=== PATIENT | female | born 1955 | race Caucasian/White ===

== ENCOUNTER 2016-12-02 06:54 | Outpatient (CLI) | payer BC ==
[~2016-12-02] VITALS: Ht 167.6 cm; Wt 99.1 kg
--- NOTE | ~2016-12-02 | HEMODYNAMI ---
PATIENT:BARBARA MOTT MEDICAL RECORD: [id number] : 53 LOCATION:[facility] ADMISSION DATE: 12/02/16 Generatedon:12/02/20169:57 Patient name: BARBARA MOTT Patient #: [id number] SSN: : Date of study: 12/02/2016 Page: Of Hemodynamic Procedure Report Patient Data Patient Demographics Procedure consent was obtained First Name: BARBARA Gender: Female Last Name: TIERA : 1955 [facility] Initial: JOSELYN Age: 60 year(s) Patient #: [id number] Race: Unknown Additional ID: [id number] Contact details Address: [address] [place] [address] ROAD State: [place] City: [place] Zip code: [address] Past Medical History Allergies Allergen Reaction Date Comments Reported Codeine 12/02/2016 Admission Admission Data Admission Date: 12/02/2016 Admission Time: 6:54 Height (in.): 66 BSA: 2.07 (m2) Height (cm.): 167.64 BMI: 35.19 (kg/m2) Weight (lbs.): 218 Weight (kg.): 98.88 Lab Results Lab Result Date: 12/02/2016 Lab Result Time: 0:00 Biochemistry Name Units Result Min Max BUN mg/dl 11 --(-*--)-- 7 18 Creatinine mg/dl 1.2 --(---*)-- 0.6 1.3 CBC Name Units Result Min Max Hemoglobin g/dl 13.3 -*(----)-- 13.5 17.5 Procedure Procedure Types Cath Procedure Diagnostic Procedure Right Heart RHC and LHC w/Coronaries Miscellaneous Procedures Moderate Sedation up to 45 minutes Procedure Description Procedure Date Procedure Date: 12/02/2016 Procedure Start Time: 9:16 Procedure End Time: 9:57 Procedure Staff Name Function Yoseph Akers MD Performing Physician Marcel Aquino RN Nurse Isela Healy RT Scrub Carlos A Reyes RT Scrub Reynaldo Lockwood RN Fisher Pound Net Or Trap Sumi Morrison RT Monitor Procedure Data Cath Procedure Fluoroscopy Diagnostic fluoroscopy Total fluoroscopy Time: 4.2 time: 4.2 min min Diagnostic fluoroscopy Total fluoroscopy dose: 448 dose: 448 mGy mGy Contrast Material Contrast Material Type Amount (ml) Isovue 300 44 Entry Location Entry Primary Successful Side Size Upsize Upsize Entry Closure Bass ccessful Closure Location (Fr) 1 (Fr) 2 (Fr) Remarks Device Remarks Femoral Right 6 Fr Manual vein Long Compression Femoral Right 5 Fr Exoseal artery Estimated blood loss: 5 ml Diagnostic catheters Device Type Used For End Catheter Placement FilesX 7Fr Right heart cath [place] Thermodilution vanessa Cordis 5Fr JL 4.0 Left Coronary Catheter (MP) Angiography Cordis 5Fr 3DRC Catheter Right Coronary (MP) Angiography Cordis 5Fr Pigtail LV Angiography Catheter (MP) Procedure Complications No complications Procedure Medications Medication Administration Route Dosage Oxygen NC 2 l/min Lidocaine 2% added to field 20 Heparin Flush Bag added to field 2 bags (1000units/500ml NS) 0.9% NaCl I.V. 100 ml/hr Zofran I.V. 2 mg Versed I.V. 1 mg Heparin Flush Bag added to field 1 bags (1000units/500ml NS) Versed I.V. 1 mg Fentanyl I.V. 50 mcg Hemodynamics Rest BSA: 2.07 (m2) HGB: 13.3 (g/dl) O2 Consumption: Estimated: 192.78 (ml/min) O2 Co nsumption indexed: Estimated:93.13 (ml/min/m) Heart Rate: 66 (bpm) Oxygen Saturations Time Location Sat. Hgb O2 pO2 PCO2 Be iCa Ph HCO 3- Hct NA K+ Use (%) (g/dl) Content (mmHg) (mmHg) (mmol/L) (mmol/L) (mmol/L) (%) (mmo l/L) (mmol/L) (ml/L) 9:25 PCW 89.3 13.3 9:25 FA 96.9 13.3 9:25 PA 72.4 13.3 9:35 ELLYN 72.7 13.3 Pressure Samples Time Site Value (mmHg) Purpose Heart Use Rate(bpm) 9:22 PCW 6/7(5) Snapshot 54 9:23 PA 20/12(15) Snapshot 56 9:32 RV 24/2,7 Snapshot 67 9:33 RA 10/11(8) Pullback 56 9:33 RV 25/3,10 Pullback 56 9:33 RA 7/6(6) Snapshot 54 9:45 LV 123/-8,14 EDP 54 Gradients Valve Time Site 1 Site 2 Mean SEP/DFP Peak To Heart Use (mmHg) (sec/min) Peak Rate (mmHg) (bpm) Pulmonic 9:32 PA RV 57 Tricuspid 9:33 RV RA 3 37 56 25/3,10 10/11(8) Thermodilution Cardiac Output Time Cardiac Output (l/min) Use 9:28 4.14 l/m 9:29 Invalid catheter data 9:30 4.17 l/m 9:31 4.35 l/m Calculations Shunts (%) CO SV CO CI Left To 5.82 (ml/beat) (l/min) (l/(min*m)) Right Narayan 65.56 4.35 2.1 Right To 5.82 133.79 Thermal 80.13 4.22 2 Left Flows (l/min) Content (ml/l) O2 Difference (ml/l) Qs 4.35 Qsi 2.1 Qe/Qp 1 O2 SA 175.27 SA-MV(AV) 44.31 O2 MV 130.96 PV-PA(VA) O2 PA 130.96 PV-MV(VV) Valve P-P Mean Valve Index Valve Source Name Gradient Area Flow (cm2) Tricuspid 3 1.52 0.73 116.72 Narayan 3 1.48 0.71 113.23 Thermal Snapshots Samples Rest 9:00 Baseline whole waves, page 1 9:22 Snapshot PCW whole waves, page 1 9:23 Snapshot PA whole waves, page 1 9:32 PullBack PA/RV Average 9:32 Snapshot RV whole waves, page 1 9:33 PullBack RV/RA Average 9:33 Snapshot RA whole waves, page 1 9:45 EDP LV whole waves, page 1 Thermal Samples Pre Cath Intra NCS Post Cath Vital Signs Time Heart Resp SPO2 NIBP (mmHg) Rhythm Pain Sedation Rate (ipm) (%) Status Level (bpm) 8:58:40 56 17 98 150/73(117) NSR 0 (11) 10(A) , No pain 9:03:04 54 18 99 143/72(119) NSR 0 (11) 10(A) , No pain 9:07:24 57 19 99 138/75(117) NSR 0 (11) 10(A) , No pain 9:11:45 53 16 98 127/72(115) NSR 0 (11) 10(A) , No pain 9:16:00 58 14 95 139/72(105) NSR 0 (11) 10(A) , No pain 9:20:21 56 16 96 132/71(108) NSR 0 (11) 10(A) , No pain 9:24:39 56 19 95 132/72(113) NSR 0 (11) 10(A) , No pain 9:28:55 52 19 94 128/73(103) NSR 0 (11) 10(A) , No pain 9:33:11 53 15 95 129/73(115) NSR 0 (11) 10(A) , No pain 9:37:27 52 16 97 126/74(109) NSR 0 (11) 10(A) , No pain 9:41:37 55 15 98 127/69(101) NSR 0 (11) 10(A) , No pain 9:45:55 55 15 98 116/66(95) NSR 0 (11) 10(A) , No pain 9:50:07 51 16 97 121/67(90) NSR 0 (11) 10(A) , No pain 9:55:06 50 10 98 Measuring NSR 0 (11) 10(A) , No pain 9:55:14 51 10 98 120/72(95) NSR 0 (11) 10(A) , No pain Medications Time Medication Route Dose Verified Delivered Reason Notes Eff ectiveness by by 8:59:33 Oxygen NC 2 Yoseph Buffie used for l/min Oswald brown MD 8:59:42 Lidocaine 2% added 20ml Yoseph Yoseph for local to vial Oswald Akers MD anesthetic field CASTRO 8:59:49 Heparin Flush added 2 Yoseph Yoseph used for Bag to bags Oswald Akers MD procedure (1000units/500ml field CASTRO NS) 8:59:57 Zofran I.V. 2 mg Yoseph Buffie Per pt Oswald Aquino RN physician states n/v with sedation 8:59:57 0.9% NaCl I.V. 100 Yoseph Buffie Per ml/hr Oswald Aquino RN physician 9:06:19 Versed I.V. 1 mg Yoseph Buffie for Oswald Aquino RN sedation 9:27:38 Heparin Flush added 1 Yoseph Buffie used for Bag to bags Oswald Aquino RN procedure (1000units/500ml field NS) 9:37:38 Versed I.V. 1 mg Yoseph Buffie for Oswald Aquino RN sedation 9:37:42 Fentanyl I.V. 50 Yoseph Buffie for mcg Oswald Aquino RN sedation Procedure Log Cath Comments Time Note 8:30:11 Reynaldo Lockwood RN sent for patient. Start room use. 8:46:12 Time tracking: Regular hours 8:46:16 Plan of Care:Hemodynamics will remain stable., Cardiac rhythm will remain stable., Comfort level will be maintained., Respiratory function will remain adequate., Patient/ family verbilizes understanding of procedure., Procedure tolerated without complication., Recovers from procedure without complications.. 8:51:07 H&P Date Dictated: 12/01/2016 Within 30 days and on chart., H&P Addendum completed by physician on day of procedure. (MUST COMPLETE FOR ALL OUTPATIENTS). 8:53:04 Patient received from Pre/Post Procedure Room to CCL 2 Alert and oriented. Tansferred to table in Supine position. 8:53:05 Warm blankets applied, and bernice hugger turned on for patient comfort. 8:53:05 Correct patient and procedure confirmed by team. 8:53:07 Signed procedure consent form obtained from patient. 8:53:07 ECG and BP/O2 sat monitors applied to patient. 9:00:55 Pre-procedure instructions explained to patient. 9:00:56 Pre-op teaching completed and patient verbalized understanding. 9:00:58 Family in patients room. 9:00:59 Patient NPO since Midnight. 9:01:06 Is the patient allergic to Iodine/contrast media? No. 9:01:12 Is patient on blood thinner?No 9:01:18 Patient diabetic? No. 9:01:25 Previous problem with sedation/anesthesia? Yes Nausea 9:01:26 Snore? Yes 9:01:27 Sleep apnea? Yes 9:01:28 Deviated septum? No 9:01:29 Opens mouth fully? Yes 9:01:29 Sticks out tongue? Yes 9:01:31 Airway obstruction? Yes ? 9:01:46 Airway obstruction? Yes Asthma 9:01:56 Dentures? Yes IN TIGHT 9:01:58 Pre procedure: right dorsailis pedis pulse 2+ Normal; easily identifiable; not easily obliterated 9:02:01 Patient pain scale 0/10 ?. 9:02:07 IV patent on arrival in left hand with 0.9% NaCl at O. 9:02:11 Lab results completed and on chart. 9:02:13 Right groin area was prepped with chlora-prep and draped in sterile fashion 9:02:14 Alarms reviewed by R. N. 9:02:14 Sharps counted by scrub and verified by R.N. 9:02:17 Use device set Femoral Dx 9:03:57 ACC The patient was administered the following blood thiners within the last 24 hours: ACCPlavix 9:04:43 Final Timeout: patient, procedure, and site verified with staff and physician. All members of the team are in agreement. 9:04:45 Right groin site verified by team. 9:04:47 Physical assessment completed. ASA score P 2 - A patient with mild systemic disease as per Yoseph Akers MD. 9:04:50 Sedation plan: IV Moderate Sedation Versed, Fentanyl 9:24:53 [place]ilee "C" tip catheter inserted 9:24:58 Oximetry samples were obtained 9:24:59 Right heart pressures and cardiac output were obtained. 9:36:56 [place] removed. 9:40:04 Catheter removed. 9:43:36 Catheter removed. 9:45:28 LV gram done using MCKEON 9:45:33 Injector settings: Ml/sec: 10, Volume: ?, 9:45:35 Injector settings: Ml/sec: 12, Volume: 8, 9:45:37 LV hemodynamics recorded. 9:48:00 Catheter removed. 9:49:04 Fluoroscopy time 04.20 minutes. 9:49:12 Flurop Dose total: 448 9:49:31 Post-op/insertion site Right Femoral artery dressed using a 4 x 4 and Tegaderm. 9:49:35 Post right femoral artery:stable, clean and dry 9:49:58 Post-procedure physical assessment completed. ASA score P 2 - A patient with mild systemic disease as per Yoseph Akers MD. 9:50:02 Post procedure rhythm: unchanged. 9:57:11 Procedure and supply charges have been captured, reviewed, submitted and are correct. Automatic Notes Time Note 8:51:35 Lab Result : BUN 11 mg/dl 8:51:35 Lab Result : Creatinine 1.2 mg/dl 8:51:35 Lab Result : Hemoglobin 13.3 g/dl 8:53:08 Full Disclosure recording started 8:57:25 Vital chart was started 8:59:33 Oxygen 2 l/min NC was administered by Marcel Aquino RN; used for procedure; 8:59:42 Lidocaine 2% 20ml vial added to field was administered by Yoseph Akers MD; for local anesthetic; 8:59:49 Heparin Flush Bag (1000units/500ml NS) 2 bags added to field was administered by Yoseph Akers MD; used for procedure; 8:59:57 Zofran 2 mg I.V. was administered by Marcel Aquino RN; Per physician; pt states n/v with sedation 8:59:57 0.9% NaCl 100 ml/hr I.V. was administered by Marcel Aquino RN; Per physician; 9:00:54 Baseline sample Acquired. 9:01:04 Patient allergic to Codeine 9:05:43 Patient Height : 167.64 cm 9:05:47 Patient Weight : 98.88 kg 9:06:19 Versed 1 mg I.V. was administered by Marcel Aquino RN; for sedation; 9:09:57 Zero performed for pressure channel P1 9:13:18 Procedure started. 9:18:05 A 6 Fr Long sheath was inserted into the Right Femoral vein 9:19:27 A 5 Fr sheath was inserted into the Right Femoral artery 9:23:23 A FilesX 7Fr [place] Thermodilution vanessa was advanced over the wire and used for Right heart cath. 9:25:14 PCW saturation: 89.3% 9:25:20 PA saturation: 72.4% 9:25:28 FA saturation: 96.9% 9:27:38 Heparin Flush Bag (1000units/500ml NS) 1 bags added to field was administered by Marcel Aquino RN; used for procedure; 9:28:57 Thermodilution performed using a Mtz 131F7 7.0 Fr 19-22C 10.00 mL. Injectate temperature was 15.41 C, CO: 4.14 L/min, average CO: 4.22 L/min 9:29:42 Thermodilution performed using a Mtz 131F7 7.0 Fr 19-22C 10.00 mL. Injectate temperature was , CO: L/min, average CO: 4.22 L/min 9:30:29 Thermodilution performed using a Mtz 131F7 7.0 Fr 19-22C 10.00 mL. Injectate temperature was 15.45 C, CO: 4.17 L/min, average CO: 4.22 L/min 9:31:37 Thermodilution performed using a Mtz 131F7 7.0 Fr 19-22C 10.00 mL. Injectate temperature was 15.65 C, CO: 4.35 L/min, average CO: 4.22 L/min 9:35:12 Mid RA saturation: 72.7% 9:37:38 Versed 1 mg I.V. was administered by Marcel Aquino RN; for sedation; 9:37:42 Fentanyl 50 mcg I.V. was administered by Marcel Aquino RN; for sedation; 9:37:46 A Cordis 5Fr JL 4.0 Catheter (MP) was advanced over the wire and used for Left Coronary Angiography. 9:41:08 A Cordis 5Fr 3DRC Catheter (MP) was advanced over the wire and used for Right Coronary Angiography. 9:44:28 A Cordis 5Fr Pigtail Catheter (MP) was advanced over the wire and used for LV Angiography. 9:48:38 Sheath removed intact; hemostasis achieved with Exoseal to the Right Femoral artery. 9:49:12 Fluoroscopy dose: 448 mGy 9:49:43 Sheath removed intact; hemostasis achieved with Manual Compression to the Right Femoral vein. 9:50:45 Procedure type changed to Cath procedure, Diagnostic procedure, Right Heart, RHC and LHC w/Coronaries, Miscellaneous Procedures, Moderate Sedation up to 45 minutes 9:50:49 Procedure Complication : No complications 9:57:12 Vital chart was stopped 9:57:25 Procedure ended. 9:57:25 Full Disclosure recording stopped Procedural Comments Time Note 9:00:48 Rhythm: sinus bradycardia 9:49:53 Post Procedure Pulses reassessed and unchanged 9:50:26 Estimated blood loss: 5 ml 9:50:27 Patient needs reinforcement of post procedure teaching. 9:50:52 See physician's report for complete and final results. 9:57:13 Report given to Pre/Post Procedure Room. 9:57:16 Patient transfered to Pre/Post Procedure Room with Stretcher. Device usage Time Note 9:02:18 Acist Syringe opened to sterile field. 9:02:18 Bag Decanter opened to sterile field. 9:02:19 Medline Cath Pack opened to sterile field. 9:02:19 Terumo 5Fr [place] Sheath opened to sterile field. 9:02:20 St Yifan 260cm J .035 wire opened to sterile field. 9:02:21 Acist Hand Control opened to sterile field. 9:02:21 Acist Manifold opened to sterile field. 9:02:22 Diagnostic Infinity 5Fr Multipack catheter opened to sterile field. 9:02:23 Tegaderm 4 x 4 opened to sterile field. 9:02:40 Terumo 7Fr [place] Sheath opened to sterile field. 9:20:02 Cook 4Fr Micropuncture ([id number]) opened to sterile field. 9:48:30 Cordis 5Fr Exoseal opened to sterile field. LHC/RHC Time Note 9:16:42 Local anesthetic to right femoral artery with Lidocaine 2% by Yoseph Akers MD.INITIAL ACCESS ONLY Times actions Time Note 9:48:40 Procedure ended.(Physican Out) Post Cath Time Note 9:49:14 Contrast amount:Isovue 300 44ml. 9:49:15 Sharps counted by scrub and verified by R.N. 9:49:18 Insertion/operative site no bleeding no hematoma. 9:50:27 Post procedure instruction explained to patient.Patient verbalizes understanding. Case Times Time Note 9:57:31 End room use (Document Last) Device Usage Item Name Manufacture Quantity Catalog Hospital Part Current Minima l Lot# / Number Charge Number Stock Stock Serial# Code Acist Syringe Acist 1 19757 [id number] 569128 [id number] 20 [employer] Bag Decanter Microtek 1 2001S [id number] 26754 463852 5 [employer] Inc[employer] Medline Cath Cardinal 1 [id number] 953129 36147 560069 5 Pack Health Terumo 5Fr Terumo 1 [id number] 141432 763856 883748 [address] Yifan 1 [id number] 747453 961606 400751 30 J .035 wire Acist Hand Acist 1 56354 044539 887772 416216 5 Control [employer] Inc Acist Manifold Acist 1 94771 620195 905114 025250 5 [employer] Inc Diagnostic Cardinal 1 [id number] 963301 65628 173940 30 Infinity 5Fr Health Multipack catheter Tegaderm 4 x 4 3M 1 1626W 840859 575574 662404 5 Terumo 7Fr Terumo 1 [id number] 342797 647987 596995 5 [place] Sheath Cook 4Fr Cook [facility] 1 [id number] 950672 703090 706706 5 Micropuncture ([id number]) Mtz Mtz 1 131F7P 795586 78725 892450 3 Lifesciences Lifesciences 7Fr [place] Thermodilution vanessa Cordis 5Fr JL Cardinal 1 [id number] 5 4.0 Catheter Health (MP) Cordis 5Fr Cardinal 1 707639 5 3DRC Catheter Health (MP) Cordis 5Fr Cardinal 1 [id number] 5 Pigtail Health Catheter (MP) Cordis 5Fr Cardinal 1 EX500 885280 207259 505185 10 [facility] Health Signature Audit [place] Stage Time Signature Unsigned Intra-Procedure 12/02/2016 Sumi 9:57:46 AM Counts RT(R) Signatures Monitor : Sumi Signature : Counts RT Date : Time : [facility] [address] [place] [address]
[2016-12-02 07:23] VITALS: BP 145/71; Ht 167.6 cm; Wt 99.1 kg
[2016-12-02] MEDS ORDERED: AMBIEN10 MG PO (07:26)
[2016-12-02] MEDS ORDERED: PREVACID15 MG PO (07:27)
[2016-12-02] MEDS ORDERED: RESTASIS EYE DR30 EA EACH EYE (07:27)
[2016-12-02] MEDS ORDERED: ESTRACE1 MG PO (07:28)
[2016-12-02] MEDS ORDERED: BYSTOLIC20 MG PO (07:28)
[2016-12-02] MEDS ORDERED: TIROSINT88 MCG PO (07:28)
[2016-12-02] MEDS ORDERED: K-TAB10 MEQ PO (07:29)
[2016-12-02] MEDS ORDERED: DYAZIDE 37.5/251 CAP PO (07:29)
[2016-12-02] MEDS ORDERED: VAGIFEM10 MCG VG (07:30)
[2016-12-02] MEDS ORDERED: ULTRAM50 MG PO (07:31)
[2016-12-02] MEDS ORDERED: IMITREX100 MG PO (07:32)
[2016-12-02] MEDS ORDERED: LIBRAX CAPSULE1 CAP PO (07:32)
[2016-12-02] MEDS ORDERED: RELPAX20 MG PO (07:33)
[2016-12-02 07:35] LABS: HEMATOCRIT 38.4 % (36.0-48.0); HEMOGLOBIN 13.3 g/dL (12-16); LYMPHOCYTES 28.6 % (15-50); MCH 29.8 pg (26.0-34.0); MCHC 34.6 g/dL (31.0-37.0); MCV 85.9 fL (80.0-100.0); MEAN PLATELET VOLUME 9.3 fL (7.4-10.4); PLATELET COUNT 217 10x3/uL (130-400); RBC 4.47 10x6/uL (4.00-5.40); RDW 12.3 % (11.5-14.5); WBC 5.4 10x3/uL (4.8-10.8)
[2016-12-02 07:57] LABS: ANION GAP 14.7 mmol/L (8-16); CALCIUM 8.6 mg/dL (8.5-10.1); CARBON DIOXIDE 24.9 mmol/L (21.0-32.0); CREATININE - SERUM 1.2 mg/dL (0.6-1.3); POTASSIUM - SERUM 3.6 mmol/L (3.5-5.1)
--- NOTE | 2016-12-02 10:27 | NUR ---
1025 LYING FLAT, ROOM AIR WITH NO RESP DISTRESS. SINUS DOMINIC RATE 51 W NO C/O CHEST PAIN. PULSES PALP X 4. R GROIN 5F EXOSEAL C/D/I WITH NO HEMATOMA OR BLEEDING. FAMILY AT BEDSIDE.
--- NOTE | 2016-12-02 11:45 | NUR ---
1105 RESTING WITH EYES CLOSED. ROOM AIR, VITALS ALL WNL. R GRION REMAINS C/D/I. 1140 HOB ELEVATED, WILL MONITOR R GROIN CLOSELY FOR BLEEDING.
--- NOTE | 2016-12-02 11:49 | NUR ---
PIV REMOVED FROM LEFT FOREARM WITH BANDAID APPLIED. SITTING UP IN BED EATING SANDWICH WITH FAMILY AT SIDE. GROIN REMAINS C/D/I.
--- NOTE | 2016-12-02 12:12 | NUR ---
D/C INSTRUCTIONS DISCUSSED WITH PATIENT AND AT BEDSIDE. UP TO BEDSIDE TO DRESS. WHEELED OUT VIA WHEELCHAIR BY CATH TEAM.
== END 2016-12-02 12:19 | disposition home or self-care (01) ==
LOC: D.CATH 06:54
PROVIDERS: Internal Medicine Cardiovascular Disease
DX: I25.119 Atherosclerotic heart disease of native coronary artery with unspecified angina pectoris (principal); R06.09 Other forms of dyspnea; I10 Essential (primary) hypertension; Z01.812 Encounter for preprocedural laboratory examination

== ENCOUNTER → 2017-02-17 10:40 | Outpatient (CLI) | payer BC ==
[2016-12-02 07:23] VITALS: BMI 35.2
[~2017-02-17 10:40] MED LIST: AMBIEN10 MG PO; BYSTOLIC20 MG PO; DYAZIDE 37.5/251 CAP PO; ESTRACE1 MG PO; IMITREX100 MG PO; K-TAB10 MEQ PO; LIBRAX CAPSULE1 CAP PO; PREVACID15 MG PO; RELPAX20 MG PO; RESTASIS EYE DR30 EA EACH EYE; TIROSINT88 MCG PO; ULTRAM50 MG PO; VAGIFEM10 MCG VG
== END | disposition home or self-care (01) ==
LOC: D.MRI 10:40
DX: R41.3 Other amnesia (principal)

== ENCOUNTER 2017-05-11 13:35 | Emergency (ER) | payer BC ==
[2016-12-02 07:23] VITALS: BMI 35.2
[2017-05-11 15:47] LABS: BASOPHILS 0.1 % (0-2); EOSINOPHILS 0.1 % (0-7); HEMATOCRIT 37.7 % (36.0-48.0); HEMOGLOBIN 12.8 g/dL (12-16); IMMATURE GRANULOCYTES 0.1 % (0-5); MCH 29.8 pg (26.0-34.0); MCV 87.7 fL (80.0-100.0); MEAN PLATELET VOLUME 10.6 fL (7.4-10.4); NEUTROPHILS 81.7 % (40-80); PLATELET COUNT 199 10x3/uL (130-400); RDW 12.8 % (11.5-14.5); WBC 7.2 10x3/uL (4.8-10.8)
[2017-05-11 15:58] LABS: INR 1.05 (0.85-1.17); PROTIME 13.3 SECONDS (11.6-15.0)
[2017-05-11 16:03] LABS: ALBUMIN 3.4 g/dL (3.4-5.0); BILIRUBIN - TOTAL 0.24 mg/dL (0.2-1.3); CALCIUM 8.5 mg/dL (8.5-10.1); CARBON DIOXIDE 26.1 mmol/L (21.0-32.0); CREATININE - SERUM 1.3 mg/dL (0.6-1.3); POTASSIUM - SERUM 4.1 mmol/L (3.5-5.1); PROTEIN - SERUM 7.1 g/dL (6.4-8.2)
[2017-05-11 16:10] LABS: HCG SERUM NEGATIVE (NEGATIVE)
[2017-05-11 16:13] LABS: THYROID STIMULATING HORMONE 1.66 uIU/mL (0.36-3.74)
[2017-05-11 17:14] LABS: APPEARANCE CLEAR (CLEAR); COLOR YELLOW (YELLOW); SPECIFIC GRAVITY 1.015 (1.005-1.020)
[2017-05-11 17:15] LABS: BILIRUBIN NEGATIVE (NEGATIVE); GLUCOSE NEGATIVE (NEGATIVE); KETONE NEGATIVE (NEGATIVE); NITRITE NEGATIVE (NEGATIVE); PROTEIN NEGATIVE (NEGATIVE); UROBILINOGEN NORMAL (NORMAL)
[2017-05-11 17:17] LABS: BACTERIA FEW /hpf (NONE SEEN); EPITHELIAL CELLS 0-5 /hpf (0-5); RED CELLS - URINE OCC /hpf (0-5)
[2017-05-11 21:06] LABS: UDS - AMPHET NEGATIVE QUAL (NEGATIVE); UDS - BARB NEGATIVE QUAL (NEGATIVE); UDS - BENZO POSITIVE QUAL (NEGATIVE); UDS - COCAINE NEGATIVE QUAL (NEGATIVE); UDS - OPIATE NEGATIVE QUAL (NEGATIVE); UDS - PCP NEGATIVE QUAL (NEGATIVE); UDS - THC NEGATIVE QUAL (NEGATIVE)
== END 2017-05-11 19:03 | disposition home or self-care (01) ==
LOC: D.ER 13:35
PROVIDERS: Nurse Practitioner Family
DX: F41.9 Anxiety disorder, unspecified (principal); T43.211A Poisoning by selective serotonin and norepinephrine reuptake inhibitors, accidental (unintentional), initial encounter; Y92.019 Unspecified place in single-family (private) house as the place of occurrence of the external cause; I10 Essential (primary) hypertension; E03.9 Hypothyroidism, unspecified

== ENCOUNTER → 2018-06-12 23:37 | Outpatient (CLI) | payer BC ==
[2016-12-02 07:23] VITALS: BMI 35.2
== END | disposition home or self-care (01) ==
LOC: D.MAMMO 11:30
PROVIDERS: ATTEND Family Medicine
DX: Z12.31 Encounter for screening mammogram for malignant neoplasm of breast (principal)